=== PATIENT | male | born 1975 | race Caucasian/White ===

== ENCOUNTER 2021-04-11 19:02 | Emergency (ER) | payer BC, OTHER ==
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
== END 2021-04-11 20:10 | disposition home or self-care (01) ==
LOC: JD.ED 19:02
DX: S60.512A Abrasion of left hand, initial encounter (principal); W50.4XXA Accidental scratch by another person, initial encounter; Y93.72 Activity, wrestling
CPT/HCPCS: 99282; 99283

== ENCOUNTER 2021-05-05 19:12 | Emergency (ER) | payer BC ==
--- NOTE | 2021-05-05 19:43 | EDM.PDOC ---
ED HPI GENERAL MEDICAL PROBLEM - General Chief Complaint: Neuro Symptoms/Deficits Stated Complaint: [facility] Time Seen by Provider: 05/05/21 19:24 Source of Information: Reports: Patient History Limitations: Reports: No Limitations - History of Present Illness INITIAL COMMENTS - FREE TEXT/NARRATIVE: Mr. Lin is a very pleasant 45-year-old gentleman who is now brought to the ED by EMS after suffering a syncopal episode at the [place] walk-in clinic. He states that he has had a few weeks of watery diarrhea, and a couple of days of a subjective fever, slight cough productive of yellowish sputum, lightheadedness, and some nausea. He states that his father of COVID-19 1 week ago today, on 04/28/2021. He states that he had met with his father for about 15 minutes prior to his dying. The patient tested positive for the SARS-CoV-2 virus 2 days ago, on 05/03/2021. He went to the walk-in clinic today because he was feeling stressed out with difficulty sleeping, which he states he has been experiencing for about 4 weeks. While being evaluated at the walk-in clinic, the patient reportedly suffered an approximately 15 to 30 second syncopal episode. No seizure-like activity, and he was not postictal. EMS placed an IV, but no medications were given. Here in the ED, the patient is found to be hemodynamically stable, afebrile, sat urating 97% on room air. He states that he feels back to normal, and he appears to be comfortable, in no acute distress. The patient denies having a recent sore throat, ear pain, nasal or sinus christopher estion, dyspnea, chest pain, palpitations, constipation, abdominal pain, urinary symptoms, recent weight gain or weight loss, recent bloody bowel movements or black bowel movements, recent joint aches, headaches, or rashes. The patient does not have a PCP. He did not receive a COVID vaccination. - Related Data Allergies Allergy/AdvReac Type Severity Reaction Status Date / Time No Known Allergies Allergy Verified 05/05/21 19:20 Home Meds: Home Meds . [No Known Home Meds] 04/11/21 [History] Past Medical History - Infectious Disease History Infectious Disease History: Reports: Chicken Pox, MRSA, Novel Coronavirus (dx'd 05/03/2021), Shingles - Past Surgical History HEENT Surgical History: Reports: Other (See Below) (Uvulectomy) Social & Family History - Tobacco Use Tobacco Use Status *Q: Never Tobacco User - Caffeine Use Caffeine Use: Reports: Coffee - Alcohol Use Alcohol Use History: Yes Date/Time of Last Drink Comment: None since 2019 - Recreational Drug Use Recreational Drug Use: No - Living Situation & Occupation Living situation: Reports: Single, Alone 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 - Physical Exam Exam: See Below Exam Limited By: No Limitations General Appearance: Alert, WD/WN, No Apparent Distress Eye Exam: Bilateral Eye: EOMI, Normal Inspection Ears: Normal External Exam, Hearing Grossly Normal Nose: Normal Inspection Throat/Mouth: Normal Inspection, Normal Lips, Normal Voice, No Airway Compromise Head Exam: Atraumatic, Normocephalic Neck: Normal Inspection, Full Range of Motion Respiratory/Chest: No Respiratory Distress, Lungs Clear, Normal Breath Sounds, No Accessory Muscle Use Cardiovascular: Normal Peripheral Pulses, Regular Rate, Rhythm, No Edema, No Gallop, No JVD, No Murmur, No Rub GI/Abdominal: Normal Bowel Sounds, Soft, Non-Tender, No Organomegaly, No Distention, No Abnormal Bruit, No Mass Neuro Exam (Abbreviated): Alert, Oriented, CN II-XII Intact, Normal Cognition, No Motor/Sensory Deficits Back Exam: Normal Inspection, Full Range of Motion, NT Extremities: Normal Inspection, Normal Range of Motion, No Pedal Edema, Normal Capillary Refill Psychiatric: Normal Affect Skin Exam: Warm, Dry, Intact, Normal Color, No Rash Course - Vital Signs Last Recorded V/S: Last Vital Signs Temp 36.4 C 05/05/21 19:16 Pulse 70 05/05/21 19:16 Resp 20 05/05/21 19:16 BP 122/80 05/05/21 19:16 Pulse Ox 97 05/05/21 19:16 Orthostatic Blood Pressure [ 113/65 Standing] Orthostatic Blood Pressure [ 111/65 Supine] - Orders/Labs/Meds Labs: Laboratory Tests 05/05/21 05/05/21 Range/Units 20:04 20:04 WBC 4.68 (4.23-9.07) K/mm3 RBC 5.43 (4.63-6.08) M/mm3 Hgb 16.2 (13.7-17.5) gm/dl Hct 47.0 (40.1-51.0) % MCV 86.6 (79.0-92.2) fl MCH 29.8 (25.7-32.2) pg MCHC 34.5 (32.2-35.5) g/dl RDW Std Deviation 41.2 (35.1-43.9) fL Plt Count 109 L (163-337) K/mm3 MPV 11.7 (9.4-12.3) fl Neutrophils % (Manual) 74 H (40-60) % Band Neutrophils % 0 (0-10) % Lymphocytes % (Manual) 26 (20-40) % Atypical Lymphs % 0 % Monocytes % (Manual) 0 L (2-10) % Eosinophils % (Manual) 0 L (0.8-7.0) % Basophils % (Manual) 0 L (0.2-1.2) Platelet Estimate Decreased Plt Morphology Comment See note RBC Morph Comment Normal Sodium 134 L (136-145) mEq/L Potassium 4.3 (3.5-5.1) mEq/L Chloride 97 L (98-107) mEq/L Carbon Dioxide 26 (21-32) mEq/L Anion Gap 15.3 H (5-15) BUN 26 H (7-18) mg/dL Creatinine 1.4 H (0.7-1.3) mg/dL Est Cr Clr Drug Dosing 60.13 mL/min Estimated GFR (MDRD) 55 (>60) mL/min BUN/Creatinine Ratio 18.6 H (14-18) Glucose 107 H (70-99) mg/dL Calcium 8.3 L (8.5-10.1) mg/dL Total Bilirubin 0.6 (0.2-1.0) mg/dL AST 17 (15-37) U/L ALT 27 (16-63) U/L Alkaline Phosphatase 61 (46-116) U/L C-Reactive Protein 0.3 (<1.0) mg/dL Total Protein 7.4 (6.4-8.2) g/dl Albumin 3.5 (3.4-5.0) g/dl Globulin 3.9 gm/dL Albumin/Globulin Ratio 0.9 L (1-2) Meds: Medications Discontinued Medications Generic Name Dose Route Start Last Admin Trade Name Edgard PRN Reason Stop Dose Admin Sodium Chloride 1,000 mls @ 999 mls/hr 05/05/21 19:49 05/05/21 19:54 Normal Saline IV 05/05/21 20:49 999 mls/hr ONETIME ONE Administration Ondansetron HCl 4 mg 05/05/21 19:49 05/05/21 19:54 Ondansetron 4 Mg/2 Ml Sdv IVPUSH 05/05/21 19:50 4 mg ONETIME ONE Administration - Re-Assessments/Exams Free Text/Narrative Re-Assessment/Exam: 05/05/21 19:42 The patient's physical exam is entirely unremarkable. I have ordered orthostatics, some blood tests, and a chest x-ray. In the meantime, the patient will be given some Zofran. 05/05/21 19:50 The patient is profoundly orthostatic. I have ordered a 1 L bolus of IV fluid to be followed by repeat orthostatics. 05/05/21 20:20 Portable chest x-ray is read by Dr. Kearney as: 1. Nothing acute is seen on current chest x-ray. 05/05/21 21:06 Following 1 L of IV fluid, the patient is no longer orthostatic. The patient's CBC is remarkable for thrombocytopenia of 109,000, and is otherwise unremarkable. His CMP is remarkable for slight hyponatremia of 134, and a BUN/Cr elevated at 26/1.4. He has slight hyperglycemia of 107, with the remainder of his CMP being unremarkable. His CRP is within normal limits at 0.3. 05/05/21 21:11 Test results discussed with the patient. Based on the patient's BMI, he is a candidate for an infusion of monoclonal antibodies. We discussed that at length, including that they are an emergency use authorization medication intended to decrease the likelihood of patients diagnosed with COVID-19 from developing severe symptoms or , and that it does not treat current symptom s. I explained that monoclonal antibodies are still under investigation, that they are not fully FDA approved, and that the potential benefits and risks of the medication are not fully known. The patient was notified that if he receives an infusion of monoclonal antibodies, that they may decrease his immune response to a COVID vaccination, should he decide to get one after he recovers from his current illness. I explained that there is a possibility that he could have an allergic reaction either during or after the infusion, as well as brief pain, bleeding, bruising of the skin, soreness, swelling, and possible infection at the infusion site. Other side effects could occur. I discussed that there are other potential treatment options that are currently not FDA approved to treat COVID-19. The patient was notified that the infusion takes about half an hour, after which he would be expected to remain in the ED for another hour to observe for possible side effects. He was offered the "Patient and caregiver KENIA Regen-Cov fact sheet" to read and review. All questions were answered. The patient expressed understanding, and elected to not proceed with an infusion. I will discharge the patient home with the recommendation that he stay adequately hydrated and take OTC ibuprofen as needed for discomfort. I recommended that he stop taking the calcium/zinc/vitamin D3 supplement, and avoid other OTC cough or cold remedies, as they have been shown to be of no benefit, but do have side effects. He is to strictly isolate and get retested for the SARS-CoV-2 virus on , 05/13/2021, 10 days after he was diagnosed. I will provide the patient a note to be off work. Departure - Departure Time of Disposition: 21:15 Disposition: Home, Self-Care 01 Condition: Good Clinical Impression: COVID-19, Syncope, Orthostasis - Discharge Information *PRESCRIPTION DRUG MONITORING PROGRAM REVIEWED*: Not Applicable *COPY OF PRESCRIPTION DRUG MONITORING REPORT IN PATIENT SEEMA: Not Applicable Instructions: COVID-19, Orthostatic Hypotension, COVID-19: How to Protect Yourself and Others - CDC, Syncope, [id number] Referrals: PCP,None [Primary Care Provider] - Forms: ED Department Discharge, ED Return to Work/School Form Additional Instructions: You were seen in the emergency room after passing out at the walk-in clinic, in the setting of being diagnosed with COVID-19 on 05/03/2021. Work-up in the ER included positional blood pressure checks, several blood tests, and a chest x-ray. Your blood pressure dropped significantly between lying and standing, a condition known as orthostasis. Your blood pressures normalized after you were given 1 L of IV fluid in the ER. Your blood work and chest x-ray were unremarkable. Treatment with monoclonal antibodies was offered, but declined. We recommend that you stay adequately hydrated and to take [id number] ibuprofen as needed for discomfort. We recommend that you stop taking the calcium/zinc/vitamin D3 supplement. We also recommend that you avoid [id number] cough or cold remedies, as they have been shown to be of no benefit, but do have side effects, such as an upset stomach. As discussed, it is imperative that you strictly isolate until you test negative for the SARS-CoV-2 virus, which, on average, takes 10 days. We therefore recommend that you get retested on , 05/13/2021. If you are still positive at that time, you need to continue to isolate until you test negative. If any other problems, please do not hesitate to return to the ER. Sepsis Event Note (ED) - Evaluation Sepsis Screening Result: No Definite Risk - Focused Exam Vital Signs: Vital Signs Temp Pulse Resp BP Pulse Ox 05/05/21 19:16 36.4 C 70 20 122/80 97
[2021-05-05] MEDS ORDERED: Sodium Chloride 0.9% 1,000 ML IV ONE (19:49)
[2021-05-05] MEDS ORDERED: Ondansetron 4 MG/2 ML SDV IVPUSH ONE (19:49)
--- NOTE | 2021-05-05 20:18 | CR ---
Chest: Frontal view of the chest was obtained. Comparison: No prior chest imaging is available. Heart size and mediastinum are within normal limits for technique. Lungs are felt to be clear with no acute parenchymal change. Bony structures show nothing acute. Impression: 1. Nothing acute is seen on current chest x-ray. Diagnostic code #1
== END 2021-05-05 21:30 | disposition home or self-care (01) ==
LOC: JD.ED 19:12
DX: U07.1 COVID-19 (principal); R55 Syncope and collapse
CPT/HCPCS: 36415; 71045; 80053; 85007; 85027; 86140; 96374; 99284; J2405; J7030

== ENCOUNTER 2021-05-10 14:41 | Emergency (ER) | payer BC ==
[2021-05-10] MEDS ORDERED: Sodium Chloride 0.9% 10 ML Syringe FLUSH PRN (15:39)
[2021-05-10] MEDS ORDERED: diphenhydrAMINE 50 MG/ML SDV IVPUSH PRN (15:40)
[2021-05-10] MEDS ORDERED: Sodium Chloride 0.9% 1,000 ML IV ONE (15:40)
[2021-05-10] MEDS ORDERED: EPINEPHrine 1 MG/ML SDV IM PRN (15:40)
[2021-05-10] MEDS ORDERED: Famotidine 20 MG/2 ML SDV IVPUSH PRN (15:40)
[2021-05-10] MEDS ORDERED: methylPREDNISolone Sodium Succinate 125 MG/2 ML SDV IVPUSH PRN (15:40)
[2021-05-10] MEDS ORDERED: Sodium Chloride 0.9% 10 ML Syringe FLUSH SCH (15:45)
--- NOTE | 2021-05-10 15:45 | EDM.PDOC ---
ED HPI GENERAL MEDICAL PROBLEM - General Chief Complaint: Respiratory Problem Stated Complaint: COVID +/WORSENING SYMPTOMS Time Seen by Provider: 05/10/21 15:32 Source of Information: Reports: Patient, Old Records, RN Notes Reviewed History Limitations: Reports: No Limitations - History of Present Illness INITIAL COMMENTS - FREE TEXT/NARRATIVE: Patient is a 45-year-old male who presents to the ER for his ongoing COVID-19 symptoms that have been worsening. Patient states that he was diagnosed 1 week ago with COVID-19. He was seen in this ER around that time, was found to be dehydrated and orthostatic, given some IV fluids and refused IV Regeneron at that time. Patient presents again today because he has not really been eating or drinking much, feels generally weak, lethargic, is not been sleeping very well and states he just did not think he could manage this at home by himself any longer. Patient did note that he recently lost his father to COVID-19, and lost a 23-year-old nephew to COVID-19 as well. Patient is concerned obviously about his ongoing disease. Vital signs are stable at this time O2 sats above 94% on room air. He appears to be in no visible respiratory distress. - Related Data Allergies Allergy/AdvReac Type Severity Reaction Status Date / Time No Known Allergies Allergy Verified 05/10/21 15:13 Home Meds: Home Meds . [No Known Home Meds] 04/11/21 [History] Past Medical History - Past Health History Medical/Surgical History: Denies Medical/Surgical History HEENT History: Reports: Impaired Vision Other Musculoskeletal History: broken R thumb Psychiatric History: Reports: Anxiety - Infectious Disease History Infectious Disease History: Reports: Chicken Pox, MRSA, Novel Coronavirus (05/04/21), Shingles - Past Surgical History HEENT Surgical History: Reports: Other (See Below) Other HEENT Surgeries/Procedures: Epiglottis Removed Social & Family History - Tobacco Use Tobacco Use Status *Q: Never Tobacco User Second Hand Smoke Exposure: No - Caffeine Use Caffeine Use: Reports: Soda - Recreational Drug Use Recreational Drug Use: No - Living Situation & Occupation Living situation: Reports: Single, Alone 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 ED EXAM, GENERAL - Physical Exam Exam: See Below Exam Limited By: No Limitations General Appearance: Alert, WD/WN, No Apparent Distress Respiratory/Chest: No Respiratory Distress, Lungs Clear, Normal Breath Sounds, No Accessory Muscle Use, Chest Non-Tender Cardiovascular: Normal Peripheral Pulses, Regular Rate, Rhythm, No Edema GI/Abdominal: Normal Bowel Sounds, Soft, Non-Tender, No Distention, No Mass Extremities: Normal Inspection, Normal Capillary Refill Neurological: Alert, Oriented, Normal Cognition, No Motor/Sensory Deficits Psychiatric: Depressed Mood, Flat Affect Skin Exam: Warm, Dry, Intact, Normal Color, No Rash Course - Vital Signs Last Recorded V/S: Last Vital Signs Temp 98.1 F 05/10/21 18:58 Pulse 68 05/10/21 18:58 Resp 16 05/10/21 18:58 BP 130/83 05/10/21 18:58 Pulse Ox 93 L 05/10/21 18:58 - Orders/Labs/Meds Orders: Active Orders 24 hr Category Date Time Status Peripheral IV Care [RC] . DIRECTED Care 05/10/21 15:40 Active Vital Signs [RC] Q15M Care 05/10/21 15:40 Active EPINEPHrine [Adrenalin] Med 05/10/21 15:40 Active 0.3 mg IM ASDIRECTED PRN Famotidine [Pepcid] Med 05/10/21 15:40 Active 20 mg IVPUSH ASDIRECTED PRN Sodium Chloride 0.9% [Saline Flush] Med 05/10/21 15:39 Active 10 ml FLUSH ASDIRECTED PRN Sodium Chloride 0.9% [Saline Flush] Med 05/10/21 15:45 Active 30 ml FLUSH ASDIRECTED diphenhydrAMINE [Benadryl] Med 05/10/21 15:40 Active 50 mg IVPUSH ASDIRECTED PRN methylPREDNISolone Sod Succ [Solu-MEDROL] Med 05/10/21 15:40 Active 125 mg IVPUSH ASDIRECTED PRN Peripheral IV Insertion Adult [OM.PC] Routine Oth 05/10/21 15:39 Ordered Medication Orders Diphenhydramine HCl (Diphenhydramine 50 Mg/Ml Sdv) 50 mg IVPUSH ASDIRECTED PRN PRN Reason: hypersensitivity reaction Epinephrine HCl (Epinephrine 1 Mg/Ml Sdv) 0.3 mg IM ASDIRECTED PRN PRN Reason: hypersensitivity reaction Famotidine (Famotidine 20 Mg/2 Ml Sdv) 20 mg IVPUSH ASDIRECTED PRN PRN Reason: hypersensitivity reaction Methylprednisolone Sodium Succinate (Methylprednisolone Sodium Succinate 125 Mg/2 Ml Sdv) 125 mg IVPUSH ASDIRECTED PRN PRN Reason: hypersensitivity reaction Sodium Chloride (Sodium Chloride 0.9% 10 Ml Syringe) 30 ml FLUSH ASDIRECTED BURKE Sodium Chloride (Sodium Chloride 0.9% 10 Ml Syringe) 10 ml FLUSH ASDIRECTED PRN PRN Reason: Keep Vein Open Labs: Laboratory Tests 05/10/21 05/10/21 Range/Units 16:05 16:05 WBC 5.08 (4.23-9.07) K/mm3 RBC 5.33 (4.63-6.08) M/mm3 Hgb 15.7 (13.7-17.5) gm/dl Hct 44.8 (40.1-51.0) % MCV 84.1 (79.0-92.2) fl MCH 29.5 (25.7-32.2) pg MCHC 35.0 (32.2-35.5) g/dl RDW Std Deviation 39.5 (35.1-43.9) fL Plt Count 173 (163-337) K/mm3 MPV 10.8 (9.4-12.3) fl Neut % (Auto) 82.7 H (34.0-67.9) % Lymph % (Auto) 12.6 L (21.8-53.1) % [place] % (Auto) 4.1 L (5.3-12.2) % Eos % (Auto) 0 L (0.8-7.0) Baso % (Auto) 0.2 (0.1-1.2) % Neut # (Auto) 4.20 (1.78-5.38) K/mm3 Lymph # (Auto) 0.64 L (1.32-3.57) K/mm3 [place] # (Auto) 0.21 L (0.30-0.82) K/mm3 Eos # (Auto) 0.00 L (0.04-0.54) K/mm3 Baso # (Auto) 0.01 (0.01-0.08) K/mm3 Sodium 124 L D (136-145) mEq/L Potassium 3.9 (3.5-5.1) mEq/L Chloride 89 L (98-107) mEq/L Carbon Dioxide 27 (21-32) mEq/L Anion Gap 11.9 (5-15) BUN 18 (7-18) mg/dL Creatinine 1.0 (0.7-1.3) mg/dL Est Cr Clr Drug Dosing 84.18 mL/min Estimated GFR (MDRD) > 60 (>60) mL/min BUN/Creatinine Ratio 18.0 (14-18) Glucose 94 (70-99) mg/dL Calcium 8.0 L (8.5-10.1) mg/dL Total Bilirubin 1.1 H (0.2-1.0) mg/dL AST 39 H (15-37) U/L ALT 54 (16-63) U/L Alkaline Phosphatase 55 (46-116) U/L C-Reactive Protein 3.5 H* (<1.0) mg/dL Total Protein 6.6 (6.4-8.2) g/dl Albumin 2.6 L (3.4-5.0) g/dl Globulin 4.0 gm/dL Albumin/Globulin Ratio 0.7 L (1-2) Meds: Medications Generic Name Dose Route Start Last Admin Trade Name Freq PRN Reason Stop Dose Admin Diphenhydramine HCl 50 mg 05/10/21 15:40 Diphenhydramine 50 Mg/Ml Sdv IVPUSH ASDIRECTED PRN hypersensitivity reaction Epinephrine HCl 0.3 mg 05/10/21 15:40 Epinephrine 1 Mg/Ml Sdv IM ASDIRECTED PRN hypersensitivity reaction Famotidine 20 mg 05/10/21 15:40 Famotidine 20 Mg/2 Ml Sdv IVPUSH ASDIRECTED PRN hypersensitivity reaction Methylprednisolone Sodium Succinate 125 mg 05/10/21 15:40 Methylprednisolone Sodium Succinate 125 Mg/2 Ml Sdv IVPUSH ASDIRECTED PRN hypersensitivity reaction Sodium Chloride 30 ml 05/10/21 15:45 Sodium Chloride 0.9% 10 Ml Syringe FLUSH ASDIRECTED BURKE Sodium Chloride 10 ml 05/10/21 15:39 Sodium Chloride 0.9% 10 Ml Syringe FLUSH ASDIRECTED PRN Keep Vein Open Discontinued Medications Generic Name Dose Route Start Last Admin Trade Name Freq PRN Reason Stop Dose Admin Sodium Chloride 1,000 mls @ 999 mls/hr 05/10/21 15:40 05/10/21 16:08 Normal Saline IV 05/10/21 16:40 999 mls/hr ONETIME ONE Administration CASIRIVIMAB/IMDEVIMAB 10 ml/ 110 mls @ 220 mls/hr 05/10/21 19:00 05/10/21 18:56 Sodium Chloride IV 05/10/21 19:29 220 mls/hr ONETIME ONE Administration Ondansetron HCl 4 mg 05/10/21 18:51 Ondansetron 4 Mg/2 Ml Sdv IVPUSH 05/10/21 18:52 ONETIME ONE - Re-Assessments/Exams Free Text/Narrative Re-Assessment/Exam: 05/10/21 15:44 Patient presents to the ER for his ongoing COVID-19 symptoms. I spoke with the patient to provide information about Regeneron treatment. I offered them the "Patient and caregiver EU Regeneron fact sheet" to read and review. I stated that the drug has been approved by an emergency use authorization (EUA) process and has not been fully FDA reviewed or approved. The patient meets the EUA requirements. I discussed there are other potential treatment options that are currently not FDA approved to treat COVID-19. I did offer an opportunity to ask questions and all questions were answered. The patient voiced understanding and agreed to proceed with the treatment. We will also get some basic labs and a repeat chest x-ray for ongoing management. I did call and talk with Korin, and pharmacy to see what monoclonal antibodies we had in stock, and she did state that we had Regeneron in stock, so I did tell her that we were going to order this. 05/10/21 17:28 Patient's labs have resulted, CBC is essentially unremarkable, CMP is impressive for a low sodium at 124, and elevated CRP at 3.5. These both have had marked change since his visit last week. The IV fluid should help a little bit with the sodium, I believe it is likely due to water dilution, as he is not really been eating much. And has been trying to hydrate himself with water. Departure - Departure Time of Disposition: 20:07 Disposition: Home, Self-Care 01 Condition: Good Clinical Impression: COVID-19, Hyponatremia - Discharge Information *PRESCRIPTION DRUG MONITORING PROGRAM REVIEWED*: No *COPY OF PRESCRIPTION DRUG MONITORING REPORT IN PATIENT SEEMA: No Instructions: 10 Things You Can Do to Manage Your COVID-19 Symptoms at Home - [facility] (02/05/2021), Hyponatremia, [id number] Referrals: PCP,None [Primary Care Provider] - Forms: ED Department Discharge Additional Instructions: You were seen in the ER today for ongoing and/or worsening respiratory symptoms. Your chest x-ray showed mild viral pneumonia typical for COVID-19 infection. Your oxygen levels were great at 93% on room air. You were given IV Regeneron therapy at today's visit, this medication is thought to work by making you a little less sick, and helps to decrease the length of time that you are sick. Your sodium level was a little bit low at today's visit, which could be the cause for some of your symptoms. You were given a bag of IV fluids in the ER, to help try to counteract this. It is likely that you are taking in too much free water, and need to supplement with fluids like Gatorade or Powerade or Pedialyte. If they are too sugary you may dilute them with free water, or try the low or 0 sugar versions of these drinks. Pedialyte also might be a little less in sugar content. You may take 500 mg Tylenol every hours 6 hours for pain/fever relief. Do not exceed 4000 mg Tylenol in a 24-hour time span. However, running a fever is your body's natural response to illness, and it allows the body to develop antibodies to disease, we are recommending trying to limit the use of Tylenol as much as possible to allow your body's natural immune response. Continue to monitor your oxygen levels at home, you should place the monitor on your finger, and sit in a calm, quiet position for a few minutes and then record the number that is on the screen. If this consistently below 90% on room air without movement, this would be cause for concern to come back to the hospital for further management of your COVID-19 disease. Please follow all guidance set forth from [facility], regarding isolation purposes for your disease process. General isolation times are 10 days from when you started being symptomatic. Sepsis Event Note (ED) - Evaluation Sepsis Screening Result: No Definite Risk - Focused Exam Vital Signs: Vital Signs Temp Pulse Resp BP Pulse Ox 05/10/21 18:58 98.1 F 68 16 130/83 93 L 05/10/21 18:15 68 16 94 L 05/10/21 18:00 70 18 93 L 05/10/21 17:45 78 16 130/83 94 L 05/10/21 17:30 70 18 145/92 H 95 05/10/21 17:15 69 16 136/84 94 L 05/10/21 17:00 70 16 129/78 93 L 05/10/21 16:45 69 17 127/80 91 L 05/10/21 16:30 67 16 124/85 92 L 05/10/21 16:15 65 16 119/78 92 L 05/10/21 15:45 98.9 F 64 18 113/75 94 L 05/10/21 15:09 97.9 F 64 30 H 111/75 94 L - My Orders Last 24 Hours: My Active Orders 05/10/21 15:39 Sodium Chloride 0.9% [Saline Flush] 10 ml FLUSH ASDIRECTED PRN Peripheral IV Insertion Adult [OM.PC] Routine 05/10/21 15:40 Peripheral IV Care [RC] . DIRECTED Vital Signs [RC] Q15M EPINEPHrine [Adrenalin] 0.3 mg IM ASDIRECTED PRN Famotidine [Pepcid] 20 mg IVPUSH ASDIRECTED PRN diphenhydrAMINE [Benadryl] 50 mg IVPUSH ASDIRECTED PRN methylPREDNISolone Sod Succ [Solu-MEDROL] 125 mg IVPUSH ASDIRECTED PRN 05/10/21 15:45 Sodium Chloride 0.9% [Saline Flush] 30 ml FLUSH ASDIRECTED - Assessment/Plan Last 24 Hours: My Active Orders 05/10/21 15:39 Sodium Chloride 0.9% [Saline Flush] 10 ml FLUSH ASDIRECTED PRN Peripheral IV Insertion Adult [OM.PC] Routine 05/10/21 15:40 Peripheral IV Care [RC] . DIRECTED Vital Signs [RC] Q15M EPINEPHrine [Adrenalin] 0.3 mg IM ASDIRECTED PRN Famotidine [Pepcid] 20 mg IVPUSH ASDIRECTED PRN diphenhydrAMINE [Benadryl] 50 mg IVPUSH ASDIRECTED PRN methylPREDNISolone Sod Succ [Solu-MEDROL] 125 mg IVPUSH ASDIRECTED PRN 05/10/21 15:45 Sodium Chloride 0.9% [Saline Flush] 30 ml FLUSH ASDIRECTED
--- NOTE | 2021-05-10 16:25 | CR ---
Chest: Frontal view of the chest was obtained. Comparison: Prior chest x-ray of 05/05/21. Heart size and mediastinum are within normal limits for technique. Lung markings are slightly increased on both sides of the chest as an interval change from prior study presumably representing mild COVID pneumonia. Bony structures show nothing acute. Impression: 1. Slight worsening of the chest when compared to prior exam. Findings most likely represent mild COVID pneumonia. Diagnostic code #3
[2021-05-10] MEDS ORDERED: Ondansetron 4 MG/2 ML SDV IVPUSH ONE (18:51)
== END 2021-05-10 20:47 | disposition home or self-care (01) ==
LOC: JD.ED 14:41
DX: U07.1 COVID-19 (principal); E87.1 Hypo-osmolality and hyponatremia
CPT/HCPCS: 36415; 71045; 80053; 85025; 86140; 96374; 99285; J2405; J7030; M0243; Q0243

== ENCOUNTER 2023-06-13 16:47 | Emergency (ER) | payer BC ==
[2023-06-13] MEDS ORDERED: Fluorescein 1 MG Ophth Strip EYELF ONE (17:11)
[2023-06-13] MEDS ORDERED: Proparacaine 0.5% Ophth Soln 15 ML Bottle EYELF ONE (17:13)
[2023-06-13 17:45] LABS: BASOPHILS ABSOLUTE AUTO 0.1 K/mm3 (0.0-0.2); BASOPHILS PERCENT AUTO 0.8 % (0.0-1.0); EOSINOPHILS ABSOLUTE AUTO 0.6 K/mm3 (0.0-0.4); EOSINOPHILS PERCENT AUTO 6.4 % (0.0-6.0); HEMATOCRIT 47.7 % (42.0-52.0); HEMOGLOBIN 16.5 gm/dl (14.0-18.0); IMMATURE GRAN ABSOLUTE AUTO 0.02 K/mm3 (0.00-0.05); IMMATURE GRAN PERCENT AUTO 0.2 % (0.0-0.4); LYMPHOCYTES ABSOLUTE AUTO 2.6 K/mm3 (1.0-4.8); LYMPHOCYTES PERCENT AUTO 29.5 % (24.0-44.0); MEAN CORPUSCULAR HEMOGLOBIN 30.5 pg (28.0-32.0); MEAN CORPUSCULAR HGB CONC 34.6 g/dl (32.0-36.0); MEAN CORPUSCULAR VOLUME 88.2 fl (83.0-99.0); MEAN PLATELET VOLUME 10.5 fl (9.4-12.4); MONOCYTES ABSOLUTE AUTO 0.7 K/mm3 (0.0-0.8); MONOCYTES PERCENT AUTO 8.1 % (0.0-8.0); NEUTROPHILS ABSOLUTE AUTO 4.8 K/mm3 (1.8-7.7); PLATELET COUNT,PLT 196 K/mm3 (150-400); RED BLOOD CELL COUNT 5.41 M/mm3 (4.52-5.90); WHITE BLOOD CELL COUNT,WBC 8.79 K/mm3 (3.9-11.3)
[2023-06-13] MEDS ORDERED: Lactated Ringers 1,000 ML IRR SCH (18:00)
[2023-06-13 18:07] LABS: ALBUMIN 3.7 g/dl (3.4-5.0); ANION GAP 18.5 (5-15); BILIRUBIN TOTAL 0.4 mg/dL (0.2-1.0); CALCIUM 9.2 mg/dL (8.5-10.1); EST CRCL DRUG DOSING (CG) 82.41 mL/min; POTASSIUM,K 4.5 mEq/L (3.5-5.1); PROTEIN TOTAL,TP 7.5 g/dl (6.4-8.2)
[2023-06-13 18:44] LABS: APPEARANCE,URINE CLEAR (Clear); BILIRUBIN,URINE NEGATIVE (Negative); COLOR,URINE YELLOW (Yellow); GLUCOSE,URINE NEGATIVE (Negative); KETONES,URINE NEGATIVE (Negative); LEUKOCYTE ESTERASE,URINE NEGATIVE (Negative); NITRITE,URINE NEGATIVE (Negative); OCCULT BLOOD,URINE NEGATIVE (Negative); PH,URINE 7.5 (5.0-8.0); PROTEIN,URINE NEGATIVE (Negative); UROBILINOGEN,URINE 0.2 (0.2-1.0)
[2023-06-13] MEDS ORDERED: amLODIPine 10 MG Tab ONE (18:53)
[2023-06-13] MEDS ORDERED: amLODIPine 10 MG Tab PO SCH (18:55)
== END 2023-06-13 19:25 | disposition home or self-care (01) ==
LOC: JD.ED 16:47
DX: I10 Essential (primary) hypertension (principal); S05.02XD Injury of conjunctiva and corneal abrasion without foreign body, left eye, subsequent encounter; Z86.16 Personal history of COVID-19; X58.XXXD Exposure to other specified factors, subsequent encounter
CPT/HCPCS: 36415; 80053; 81003; 84484; 85025; 93005; 99283; A9270; J7120; 65205; 93010; J3490